=== PATIENT | female | born 1960 | race Asian ===

== ENCOUNTER 2018-12-12 09:25 | Emergency (ER) | payer SELFPAY ==
[~2018-12-12] VITALS: Ht 157.5 cm; Wt 44.5 kg
[2018-12-12 09:25] VITALS: BP 148/74
--- NOTE | 2018-12-12 09:25 | NUR ---
Patient BIBA BLS, transferred to bed 4. RN evaluating patient at bedside.
[2018-12-12 09:26] VITALS: BP 148/74
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
--- NOTE | 2018-12-12 09:30 | NUR ---
pt amb to restroom with steady gait
--- NOTE | 2018-12-12 09:41 | NUR ---
Dr. Smith evaluating patient at bedside.
[2018-12-12] MEDS ORDERED: LORazepam 1 MG TAB PO ONE (09:45)
--- NOTE | 2018-12-12 09:51 | NUR ---
pts family on phone to translate yak[place] to portuguese. 1mg of ativan administered po
--- NOTE | 2018-12-12 11:11 | NUR ---
Patient discharged BY DR CLAIRE. Patient Ambulatory with steady gait. PTS SISTER PRESENT TO DRIVE PATIENT HOME
== END 2018-12-12 11:07 | disposition home or self-care (01) ==
LOC: MED 09:25
DX: F41.9 Anxiety disorder, unspecified (principal); V89.2XXA Person injured in unspecified motor-vehicle accident, traffic, initial encounter; Y93.89 Activity, other specified; Y92.89 Other specified places as the place of occurrence of the external cause; Y99.8 Other external cause status
CPT/HCPCS: 81025; 99282